=== PATIENT | male | born 1960 | race Caucasian/White ===

== ENCOUNTER 2020-08-09 16:32 | Emergency (ER) | payer SELFPAY ==
[2020-08-09 17:26] LABS: BASOPHIL 0.7 % (0-2); EOSINOPHIL 1.1 % (0-5); HCT 46.4 % (42.0-52.0); HGB 15.8 g/dl (13.2-18.0); LYMPHOCYTE 35.1 % (15-48); MCH 29.9 pg (25.0-31.0); MCHC 34.1 g/dL (32.0-36.0); MCV 87.7 fL (78.0-100.0); MONOCYTE 7.4 % (0-12); MPV 10.1 fL (6.0-9.5); NEUTROPHIL 55.6 % (41-80); NRBC 0; PLT 245 K/uL (150-400); RBC 5.29 M/uL (4.70-6.00); RDW 12.5 % (11.5-14.0); WBC 7.3 K/uL (4.0-10.5)
[2020-08-09 17:36] LABS: INR 1.04 (0.9-1.2); PROTHROMBIN TIME 12.9 SECONDS (11.4-13.6); PTT 25.1 SECONDS (22.2-34.7)
[2020-08-09] MEDS ORDERED: NORVASC 10MG TA10 MG PO (19:28)
[2020-08-09] MEDS ORDERED: HCTZ25 MG PO (19:28)
== END 2020-08-09 19:58 | disposition home or self-care (01) ==
LOC: FER 16:32
PROVIDERS: Emergency Medicine
DX: I10 Essential (primary) hypertension (principal); Z91.14 Patient's other noncompliance with medication regimen; Z79.82 Long term (current) use of aspirin
CPT/HCPCS: 36415; 71045; 83880; 84484; 85025; 85610; 85730; 93005; J3490

== ENCOUNTER 2020-09-22 17:03 | Emergency (ER) | payer SELFPAY ==
[~2020-09-22 17:03] MED LIST: HCTZ25 MG PO; NORVASC 10MG TA10 MG PO
[2020-09-22 17:52] LABS: BASOPHIL 0.7 % (0-2); EOSINOPHIL 2.2 % (0-5); HCT 45.5 % (42.0-52.0); HGB 15.4 g/dl (13.2-18.0); LYMPHOCYTE 34.3 % (15-48); MCH 29.3 pg (25.0-31.0); MCHC 33.8 g/dL (32.0-36.0); MCV 86.5 fL (78.0-100.0); MONOCYTE 7.7 % (0-12); MPV 10.2 fL (6.0-9.5); NEUTROPHIL 54.8 % (41-80); NRBC 0; PLT 260 K/uL (150-400); RBC 5.26 M/uL (4.70-6.00); RDW 12.4 % (11.5-14.0); WBC 7.3 K/uL (4.0-10.5)
[2020-09-22 17:57] LABS: INR 1.01 (0.9-1.2); PROTHROMBIN TIME 12.6 SECONDS (11.4-13.6); PTT 28.1 SECONDS (22.2-34.7)
[2020-09-22 17:58] LABS: D-DIMER < 0.27 ug/mLFEU (0.00-0.41)
[2020-09-22 18:02] LABS: ALBUMIN 4.1 g/dL (3.4-5.0); BILIRUBIN - TOTAL 0.4 mg/dL (0.2-1.0); BUN/CREAT RATIO (CALC) 14.6 RATIO; CREATININE 0.89 mg/dL (0.67-1.17); POTASSIUM 3.1 mmol/L (3.5-5.1); TOTAL PROTEIN 8.1 g/dL (6.4-8.2)
[2020-09-22 18:11] LABS: CKMB 0.6 ng/mL (0.0-3.6)
[2020-09-22 19:48] LABS: CKMB 0.9 ng/mL (0.0-3.6)
== END 2020-09-22 20:10 | disposition home or self-care (01) ==
LOC: FER 17:03
PROVIDERS: Physician Assistant Medical
DX: R07.89 Other chest pain (principal); R42 Dizziness and giddiness; I10 Essential (primary) hypertension; Z79.899 Other long term (current) drug therapy; Z79.82 Long term (current) use of aspirin
CPT/HCPCS: 36415; 71045; 80053; 82553; 84484; 85025; 85379; 85610; 85730

== ENCOUNTER 2022-01-11 17:31 | Emergency (ER) | payer SELFPAY | END 2022-01-11 19:20 | disposition home or self-care (01) | LOC: FER 17:31 | DX: S30.811A Abrasion of abdominal wall, initial encounter (principal); I10 Essential (primary) hypertension; Z23 Encounter for immunization; Z28.310 Unvaccinated for COVID-19; W22.8XXA Striking against or struck by other objects, initial encounter; Y93.89 Activity, other specified | CPT/HCPCS: 74018; 90471; 90715 ==